=== PATIENT | male | born 1995 | race Two or more races ===

== ENCOUNTER 2023-02-11 09:53 | Inpatient (IN) | payer MEDICAID, OTHER ==
[~2023-02-11] VITALS: Ht 177.8 cm; Wt 77.5 kg
[2023-02-11] MEDS ORDERED: SODIUM CHLORIDE 0.9% 1,000 ML IV ONE (10:15)
[2023-02-11] MEDS ORDERED: LORazepam 2MG/ML-1ML VIAL IV ONE ×4 (10:15→19:30)
[2023-02-11 10:23] LABS: Basophils # (auto) 0.1 10 ^3/uL (0-0.2); Basophils % (auto) 0.6 % (0.0-2.0); Eosinophils # (auto) 0.1 10 ^3/uL (0-0.8); Eosinophils % (auto) 0.7 % (0.0-7.0); Hematocrit 47.2 % (41.0-53.0); Hemoglobin 16.1 g/dL (13.5-17.5); Lymphocytes # (auto) 1.5 10 ^3/uL (0.4-5.4); Mean Corpuscular Hemoglobin 31.2 pg (28.0-32.0); Mean Corpuscular Hgb Conc. 34.2 g/dL (32.0-36.0); Mean Corpuscular Volume 91.4 fL (80.0-100.0); Monocytes # (auto) 0.7 10 ^3/uL (0-1.3); Monocytes % (auto) 7.6 % (0.0-12.0); Neutrophils # (auto) 7.4 10 ^3/uL (1.6-8.6); Neutrophils % (auto) 76.1 % (37.0-80.0); Nucleated Red Blood Cells % 0.1 %; Red Blood Cells 5.16 10^6/uL (4.5-5.90); Red Cell Distribution Width 14.2 % (11.8-14.3); White Blood Cell 9.8 10^3/uL (4.4-10.8)
[2023-02-11 10:26] VITALS: PULSE 98; RESP 19; O2SAT 97
[2023-02-11] MEDS ORDERED: LORazepam 2MG/ML-1ML VIAL ONE ×3 (10:35→19:06)
[2023-02-11 10:43] LABS: Alanine Aminotransferase 88 U/L (7-40); Albumin 5.1 g/dL (3.2-4.8); Alkaline Phosphatase 127 U/L (46-116); Anion Gap 13 (5-15); Aspartate Aminotransferase 36 U/L (13-40); BUN/Creatinine Ratio 8.5 (10.0-20.0); Bilirubin, Total 0.4 mg/dL (0.2-1.0); Blood Urea Nitrogen 7 mg/dL (9-23); Calcium 9.5 mg/dL (8.5-10.1); Carbon Dioxide 19 mmol/L (20-30); Chloride 104 mmol/L (98-107); Glucose 112 mg/dL (74-106); Potassium 3.7 mmol/L (3.5-5.1); Sodium 136 mmol/L (136-145); Total Protein 8.2 g/dL (5.7-8.2)
[2023-02-11 10:52] LABS: Urine WBC None Seen /hpf (0 - 3)
[2023-02-11 11:04] LABS: Urine Bacteria NONE SEEN /hpf (None Seen); Urine Blood Negative /uL (Negative); Urine Clarity Clear (Clear); Urine Color Yellow (Yellow); Urine Mucus FEW (None Seen); Urine Protein, UAD Negative (Negative); Urine Specific Gravity 1.007 (1.001-1.035); Urine Urobilinogen Normal (Negative); Urine pH 5.5 (5.0-8.0)
[2023-02-11] MEDS ORDERED: THIAMINE 100mg/ml INJ (200mg/2ml VIAL) IV ONE (11:15)
[2023-02-11] MEDS ORDERED: KETO10TA PO (13:05)
[2023-02-11] MEDS ORDERED: LEVE500T3 PO (13:05)
[2023-02-11] MEDS ORDERED: NITROGLYCERIN 0.4 MG SL TAB SL PRN (13:15)
[2023-02-11] MEDS ORDERED: ONDANSETRON HCL 4 MG/2 ML VIAL IV PRN (13:15)
[2023-02-11] MEDS ORDERED: ACETAMINOPHEN 325 MG TAB PO PRN (13:15)
[2023-02-11] MEDS ORDERED: MORPHINE SULFATE INJ 2 MG/ml SYRG IV PRN (13:15)
[2023-02-11] MEDS: SODIUM CHLORIDE 0.9% 1,000 ML IV SCH ×2 (13:24→21:35)
[2023-02-11 16:00] VITALS: TEMP 98
[2023-02-11] MEDS: LORazepam 2MG/ML-1ML VIAL IV PRN (19:22)
[2023-02-11 19:35] VITALS: PULSE 84; RESP 18; O2SAT 97
[2023-02-11] MEDS ORDERED: chlordiazePOXIDE HCL 25 MG CAP PO PRN (20:00)
[2023-02-11] MEDS ORDERED: FOLIC ACID 1 MG, MULTIPLE VITAMIN 10 ML, MAGNESIUM SULF SDV 50% 8 MEQ, THIAMINE INJ 100... INJ SCH ×5 (21:45)
[2023-02-11] MEDS: levETIRAcetam 500 MG TAB PO SCH (23:01)
[2023-02-12] MEDS: LORazepam 2MG/ML-1ML VIAL IV PRN ×2 (01:34→08:45)
[2023-02-12 04:29] LABS: Basophils # (auto) 0 10 ^3/uL (0-0.2); Basophils % (auto) 0.5 % (0.0-2.0); Eosinophils # (auto) 0.2 10 ^3/uL (0-0.8); Eosinophils % (auto) 3.1 % (0.0-7.0); Hematocrit 41.2 % (41.0-53.0); Hemoglobin 13.9 g/dL (13.5-17.5); Lymphocytes # (auto) 1.7 10 ^3/uL (0.4-5.4); Mean Corpuscular Hemoglobin 30.9 pg (28.0-32.0); Mean Corpuscular Hgb Conc. 33.6 g/dL (32.0-36.0); Mean Corpuscular Volume 91.8 fL (80.0-100.0); Monocytes # (auto) 0.6 10 ^3/uL (0-1.3); Monocytes % (auto) 8.5 % (0.0-12.0); Neutrophils # (auto) 4.8 10 ^3/uL (1.6-8.6); Neutrophils % (auto) 64.9 % (37.0-80.0); Red Blood Cells 4.49 10^6/uL (4.5-5.90); Red Cell Distribution Width 13.8 % (11.8-14.3); White Blood Cell 7.4 10^3/uL (4.4-10.8)
[2023-02-12 04:43] LABS: Alanine Aminotransferase 61 U/L (7-40); Albumin 3.9 g/dL (3.2-4.8); Alkaline Phosphatase 116 U/L (46-116); Anion Gap 8 (5-15); Aspartate Aminotransferase 23 U/L (13-40); Blood Urea Nitrogen 6 mg/dL (9-23); Calcium 8.5 mg/dL (8.7-10.4); Carbon Dioxide 23 mmol/L (20-30); Chloride 108 mmol/L (98-107); Glucose 86 mg/dL (74-106); Potassium 3.8 mmol/L (3.5-5.1); Sodium 139 mmol/L (136-145)
[2023-02-12 04:44] LABS: Total Protein 6.1 g/dL (5.7-8.2)
[2023-02-12] MEDS: SODIUM CHLORIDE 0.9% 1,000 ML IV SCH ×2 (06:47→14:15)
[2023-02-12 08:23] VITALS: RESP 18; O2SAT 98
[2023-02-12] MEDS ORDERED: HYDROcodone-ACET 5/325MG TAB PO ONE (09:30)
[2023-02-12] MEDS: levETIRAcetam 500 MG TAB PO SCH (10:00)
[2023-02-12] MEDS ORDERED: ENOXAPARIN SOD 40 MG/0.4 ML SYRINGE SC SCH (10:00)
[2023-02-12] MEDS ORDERED: FOLIC ACID 1 MG, MULTIPLE VITAMIN 10 ML, MAGNESIUM SULF SDV 50% 8 MEQ, THIAMINE INJ 100... INJ SCH ×10 (12:00)
[2023-02-12 14:00] VITALS: BP 119/68; PULSE 85; RESP 15; O2SAT 98
[2023-02-12] MEDS ORDERED: LEVE100012 PO (14:10)
== END 2023-02-13 14:27 | disposition home or self-care (01) | DRG 53 ==
LOC: EDBD 09:53 → ER 09:53 → TELE 13:05
PROVIDERS: ADMIT Nurse Practitioner Family; ATTEND Internal Medicine Geriatric Medicine
DX: G40.409 Other generalized epilepsy and epileptic syndromes, not intractable, without status epilepticus (principal); F10.129 Alcohol abuse with intoxication, unspecified; F17.200 Nicotine dependence, unspecified, uncomplicated; Z79.899 Other long term (current) drug therapy; Z91.148 Patient's other noncompliance with medication regimen for other reason
CPT/HCPCS: 36415; 70450; 73030; 80053; 80320; 81001; 82542; 84146; 85025; 95819; 96365; 96375; G0378; J7060

== ENCOUNTER 2023-03-24 13:48 | Emergency (ER) | payer MEDICAID ==
[~2023-03-24] VITALS: Ht 177.8 cm; Wt 82.0 kg
[~2023-03-24 13:48] MED LIST: KETO10TA PO; LEVE100012 PO; LEVE500T3 PO
[2023-03-24] MEDS ORDERED: levETIRAcetam 1000 mg/100ml 100 ML IV ONE (14:00)
[2023-03-24 14:30] VITALS: BP 131/78; PULSE 109; RESP 20; O2SAT 94
[2023-03-24 14:44] LABS: Basophils # (auto) 0 10 ^3/uL (0-0.2); Basophils % (auto) 0.6 % (0.0-2.0); Eosinophils # (auto) 0 10 ^3/uL (0-0.8); Eosinophils % (auto) 0.9 % (0.0-7.0); Hematocrit 44.4 % (41.0-53.0); Lymphocytes % (auto) 20.5 % (10.0-50.0); Mean Corpuscular Hemoglobin 30.6 pg (28.0-32.0); Mean Corpuscular Hgb Conc. 33.8 g/dL (32.0-36.0); Mean Corpuscular Volume 90.7 fL (80.0-100.0); Monocytes # (auto) 0.5 10 ^3/uL (0-1.3); Monocytes % (auto) 9.6 % (0.0-12.0); Neutrophils # (auto) 3.4 10 ^3/uL (1.6-8.6); Neutrophils % (auto) 68.4 % (37.0-80.0); Nucleated Red Blood Cells % 0.1 %; Red Cell Distribution Width 13.5 % (11.8-14.3)
[2023-03-24 14:57] LABS: INR 1.03 (0.9-1.15); Partial Thromboplastin Time 25.8 SEC (24.5-34.5); Prothrombin Time 10.8 sec (9.3-11.8)
[2023-03-24 15:03] LABS: Alanine Aminotransferase 62 U/L (7-40); Albumin 4.8 g/dL (3.2-4.8); Alkaline Phosphatase 111 U/L (46-116); Anion Gap 14 (5-15); Aspartate Aminotransferase 32 U/L (13-40); BUN/Creatinine Ratio 7.8 (10.0-20.0); Blood Alcohol 65.2 mg/dL (<10); Blood Urea Nitrogen 8 mg/dL (9-23); Calcium 9.3 mg/dL (8.7-10.4); Carbon Dioxide 20 mmol/L (20-30); Chloride 106 mmol/L (98-107); Glucose 134 mg/dL (74-106); Magnesium 2.2 mg/dL (1.6-2.6); Potassium 4.3 mmol/L (3.5-5.1); Sodium 140 mmol/L (136-145)
[2023-03-24 15:04] LABS: Bilirubin, Total 0.3 mg/dL (0.2-1.0); Total Protein 7.6 g/dL (5.7-8.2)
[2023-03-24] MEDS ORDERED: LEVE500T40 PO (15:22)
== END 2023-03-24 15:23 | disposition home or self-care (01) ==
LOC: EDBD 13:48 → ER 13:48
DX: S09.93XA Unspecified injury of face, initial encounter (principal); R56.9 Unspecified convulsions; F10.10 Alcohol abuse, uncomplicated; Z79.899 Other long term (current) drug therapy; X58.XXXA Exposure to other specified factors, initial encounter; Y93.89 Activity, other specified; Y92.89 Other specified places as the place of occurrence of the external cause; Y99.8 Other external cause status; Y90.3 Blood alcohol level of 60-79 mg/100 ml
CPT/HCPCS: 36415; 80053; 80320; 83735; 85025; 85610; 85730; 96365; 99284; J1953

== ENCOUNTER 2023-04-18 02:37 | Emergency (ER) | payer MEDICAID ==
[~2023-04-18] VITALS: Ht 182.9 cm; Wt 90.7 kg
[~2023-04-18 02:37] MED LIST changes: +LEVE500T40 PO
[2023-04-18] MEDS ORDERED: LORazepam 2MG/ML-1ML VIAL IV ONE (03:45)
[2023-04-18] MEDS ORDERED: levETIRAcetam 1000 mg/100ml 100 ML IV ONE (04:00)
[2023-04-18 04:30] VITALS: PULSE 105; RESP 18; O2SAT 95
[2023-04-18] MEDS ORDERED: MIDAZOLAM HCL 2MG/2ML 2ml VIAL (1mg/ml) IV ONE (04:45)
[2023-04-18] MEDS ORDERED: PROPOFOL 100 ML IV ONE (05:12)
[2023-04-18] MEDS ORDERED: KEP500T PO (05:19)
[2023-04-18 06:16] LABS: Basophils # (auto) 0.1 10 ^3/uL (0-0.2); Basophils % (auto) 0.7 % (0.0-2.0); Eosinophils # (auto) 0.1 10 ^3/uL (0-0.8); Hematocrit 41.5 % (41.0-53.0); Hemoglobin 13.9 g/dL (13.5-17.5); Lymphocytes # (auto) 1.7 10 ^3/uL (0.4-5.4); Lymphocytes % (auto) 19.3 % (10.0-50.0); Mean Corpuscular Hgb Conc. 33.4 g/dL (32.0-36.0); Mean Corpuscular Volume 89.8 fL (80.0-100.0); Monocytes # (auto) 0.7 10 ^3/uL (0-1.3); Monocytes % (auto) 8.2 % (0.0-12.0); Neutrophils # (auto) 6.4 10 ^3/uL (1.6-8.6); Neutrophils % (auto) 70.8 % (37.0-80.0); Red Blood Cells 4.62 10^6/uL (4.5-5.90); Red Cell Distribution Width 13.3 % (11.8-14.3)
[2023-04-18] MEDS ORDERED: PROPOFOL 10 MG/ML 20 ML IV ONE (06:30)
[2023-04-18 06:43] LABS: Alanine Aminotransferase 50 U/L (7-40); Albumin 3.9 g/dL (3.2-4.8); Alkaline Phosphatase 86 U/L (46-116); Anion Gap 7 (5-15); Aspartate Aminotransferase 23 U/L (13-40); BUN/Creatinine Ratio 10.4 (10.0-20.0); Bilirubin, Total 0.5 mg/dL (0.2-1.0); Blood Urea Nitrogen 8 mg/dL (9-23); Calcium 8.3 mg/dL (8.7-10.4); Carbon Dioxide 22 mmol/L (20-30); Chloride 108 mmol/L (98-107); Glucose 90 mg/dL (74-106); Potassium 3.3 mmol/L (3.5-5.1); Sodium 137 mmol/L (136-145); Total Protein 6.1 g/dL (5.7-8.2)
[2023-04-18 09:29] VITALS: PULSE 56; RESP 16; O2SAT 98
[2023-04-18 10:48] VITALS: BP 96/55; PULSE 71; RESP 20; O2SAT 98
== END 2023-04-18 12:52 | disposition home or self-care (01) ==
LOC: EDBD 02:37 → ER 02:37
DX: M24.412 Recurrent dislocation, left shoulder (principal); G40.909 Epilepsy, unspecified, not intractable, without status epilepticus
CPT/HCPCS: 23650; 36415; 73020; 73030; 80053; 85025; 93005; 96365; 96375; 99285; J1953; J2060; J2250; J2704

== ENCOUNTER 2023-06-13 10:45 | Inpatient (IN) | payer MEDICAID ==
[~2023-06-13] VITALS: Ht 179.1 cm; Wt 84.6 kg
[~2023-06-13 10:45] MED LIST changes: +KEP500T PO; -LEVE100012 PO; -LEVE500T3 PO; -LEVE500T40 PO
[2023-06-13] MEDS: levETIRAcetam 1000 mg/100ml 100 ML IV ONE (10:59)
[2023-06-13] MEDS: SODIUM CHLORIDE 0.9% 1,000 ML IV ONE ×2 (11:01→12:51)
[2023-06-13 11:05] VITALS: PULSE 112; RESP 19; O2SAT 92
[2023-06-13 11:34] LABS: Basophils # (auto) 0.1 10 ^3/uL (0-0.2); Basophils % (auto) 0.8 % (0.0-2.0); Eosinophils # (auto) 0.1 10 ^3/uL (0-0.8); Eosinophils % (auto) 1.1 % (0.0-7.0); Hemoglobin 14.3 g/dL (13.5-17.5); Lymphocytes # (auto) 1.4 10 ^3/uL (0.4-5.4); Lymphocytes % (auto) 16.7 % (10.0-50.0); Mean Corpuscular Hemoglobin 30.1 pg (28.0-32.0); Mean Corpuscular Hgb Conc. 33.3 g/dL (32.0-36.0); Mean Corpuscular Volume 90.5 fL (80.0-100.0); Monocytes # (auto) 0.7 10 ^3/uL (0-1.3); Monocytes % (auto) 7.9 % (0.0-12.0); Neutrophils # (auto) 6.2 10 ^3/uL (1.6-8.6); Neutrophils % (auto) 73.5 % (37.0-80.0); Nucleated Red Blood Cells % 0.1 %; Red Blood Cells 4.75 10^6/uL (4.5-5.90); Red Cell Distribution Width 13.7 % (11.8-14.3); White Blood Cell 8.4 10^3/uL (4.4-10.8)
[2023-06-13 11:56] LABS: Alanine Aminotransferase 51 U/L (7-40); Albumin 4.5 g/dL (3.2-4.8); Alkaline Phosphatase 80 U/L (46-116); Anion Gap 11 (5-15); Aspartate Aminotransferase 22 U/L (13-40); BUN/Creatinine Ratio 13.6 (10.0-20.0); Blood Urea Nitrogen 12 mg/dL (9-23); Calcium 8.8 mg/dL (8.7-10.4); Carbon Dioxide 19 mmol/L (20-30); Chloride 107 mmol/L (98-107); Creatine Kinase IFCC 142 U/L (46-171); Glucose 88 mg/dL (74-106); Magnesium 2.1 mg/dL (1.6-2.6); Potassium 4.8 mmol/L (3.5-5.1); Sodium 137 mmol/L (136-145)
[2023-06-13 11:57] LABS: Bilirubin, Total 0.3 mg/dL (0.2-1.0); Total Protein 6.9 g/dL (5.7-8.2)
[2023-06-13 11:59] LABS: Lactic Acid w/Reflex 5.7 mmol/L (0.4-2.0)
[2023-06-13 13:40] LABS: Urine Bacteria NONE SEEN /hpf (None Seen); Urine Blood Negative /uL (Negative); Urine Clarity Clear (Clear); Urine Color Straw (Yellow); Urine Mucus FEW (None Seen); Urine Protein, UAD Negative (Negative); Urine Specific Gravity 1.012 (1.001-1.035); Urine Urobilinogen Normal (Negative); Urine WBC <1 /hpf (0 - 3)
[2023-06-13] MEDS ORDERED: MORPHINE SULFATE INJ 2 MG/ml SYRG IV PRN (14:00)
[2023-06-13] MEDS ORDERED: ACETAMINOPHEN 325 MG TAB PO PRN (14:00)
[2023-06-13] MEDS ORDERED: NITROGLYCERIN 0.4 MG SL TAB SL PRN (14:00)
[2023-06-13] MEDS: LORazepam 2MG/ML-1ML VIAL ONE (14:01)
[2023-06-13 14:09] LABS: Amphetamine Screen, Urine Neg (NEGATIVE); Benzodiazephine Screen, Urine Neg (NEGATIVE)
[2023-06-13 14:10] LABS: Barbiturate Scree,Urine Neg (NEGATIVE); Cocaine Screen, Urine Neg (NEGATIVE)
[2023-06-13 14:11] LABS: Cannabinoid Screen, Urine Neg (NEGATIVE); Opiate Scree,Urine Neg (NEGATIVE); Phencyclidine Screen, Urine Neg (NEGATIVE)
[2023-06-13] MEDS: LORazepam 2MG/ML-1ML VIAL IV ONE (14:15)
[2023-06-13] MEDS: SODIUM CHLORIDE 0.9% 1,000 ML IV SCH (15:19)
[2023-06-13 19:40] VITALS: PULSE 112; RESP 18; O2SAT 94
[2023-06-13] MEDS: levETIRAcetam 500 MG TAB PO SCH (22:13)
[2023-06-13] MEDS: levETIRAcetam 500 MG TAB ONE (22:15)
[2023-06-13] MEDS: levETIRAcetam 500 MG/5ML INJ IV ONE (22:16)
[2023-06-14 05:00] VITALS: BP 109/65; PULSE 66; RESP 16; TEMP 98.2; O2SAT 94
[2023-06-14] MEDS: LORazepam 2MG/ML-1ML VIAL IV PRN (07:55)
[2023-06-14 08:00] VITALS: PULSE 85
[2023-06-14 09:00] VITALS: BP 119/74; PULSE 63; RESP 20; TEMP 98.2; O2SAT 96
[2023-06-14] MEDS ORDERED: LORazepam 2MG/ML-1ML VIAL IV ONE (09:00)
[2023-06-14] MEDS: THIAMINE 100mg/ml INJ (200mg/2ml VIAL) IV SCH (09:21)
[2023-06-14] MEDS: levETIRAcetam 1000 mg/100ml 100 ML IV SCH (09:21)
[2023-06-14] MEDS: ENOXAPARIN SOD 40 MG/0.4 ML SYRINGE SC SCH (10:00)
[2023-06-14 13:00] VITALS: BP 139/61; PULSE 77; RESP 18; TEMP 98.6; O2SAT 95
== END 2023-06-14 15:00 | disposition left against medical advice (07) | DRG 53 ==
LOC: EDUNIT# 10:45 → ER 10:45 → EDBD 10:45 → TELE 13:59 → ER 14:05 → TELE-WESTW 22:50
PROVIDERS: ADMIT Nurse Practitioner Family; ATTEND Internal Medicine Geriatric Medicine
DX: G40.409 Other generalized epilepsy and epileptic syndromes, not intractable, without status epilepticus (principal); E87.20 Acidosis, unspecified; R41.3 Other amnesia; F17.200 Nicotine dependence, unspecified, uncomplicated; M25.512 Pain in left shoulder; Z91.199 Patient's noncompliance with other medical treatment and regimen due to unspecified reason; Z79.899 Other long term (current) drug therapy
CPT/HCPCS: 36415; 70450; 71045; 73030; 80053; 80307; 81001; 82542; 82550; 83605; 83735; 84443; 84484; 85025; 93005; G0378

== ENCOUNTER 2023-07-09 15:01 | Inpatient (IN) | payer MEDICAID ==
[~2023-07-09] VITALS: Ht 180.3 cm; Wt 75.5 kg
[~2023-07-09 15:01] MED LIST changes: -KETO10TA PO
[2023-07-09] MEDS: levETIRAcetam 500 mg/100ml 100 ML IV SCH (17:50)
[2023-07-09 22:08] VITALS: PULSE 79; RESP 15; O2SAT 96
[2023-07-09] MEDS: PROPOFOL 10 MG/ML 20 ML IV ONE (22:34)
[2023-07-10 01:26] LABS: Urine Bacteria FEW /hpf (None Seen); Urine Blood Negative /uL (Negative); Urine Clarity HAZY (Clear); Urine Color Yellow (Yellow); Urine Mucus FEW (None Seen); Urine Protein, UAD TRACE (Negative); Urine Specific Gravity 1.022 (1.001-1.035); Urine Sperm PRESENT /hpf (None Seen); Urine Urobilinogen Normal (Negative); Urine WBC 1 /hpf (0 - 3); Urine pH 5.5 (5.0-8.0)
[2023-07-10 01:53] LABS: Basophils # (auto) 0 10 ^3/uL (0-0.2); Basophils % (auto) 0.6 % (0.0-2.0); Eosinophils # (auto) 0.1 10 ^3/uL (0-0.8); Eosinophils % (auto) 1.9 % (0.0-7.0); Hematocrit 44.1 % (41.0-53.0); Hemoglobin 14.7 g/dL (13.5-17.5); Lymphocytes % (auto) 25.7 % (10.0-50.0); Mean Corpuscular Hemoglobin 29.6 pg (28.0-32.0); Mean Corpuscular Hgb Conc. 33.3 g/dL (32.0-36.0); Monocytes # (auto) 0.8 10 ^3/uL (0-1.3); Monocytes % (auto) 10.3 % (0.0-12.0); Neutrophils # (auto) 4.8 10 ^3/uL (1.6-8.6); Neutrophils % (auto) 61.5 % (37.0-80.0); Nucleated Red Blood Cells % 0.2 %; Red Blood Cells 4.95 10^6/uL (4.5-5.90); Red Cell Distribution Width 14.1 % (11.8-14.3); White Blood Cell 7.8 10^3/uL (4.4-10.8)
[2023-07-10 01:59] LABS: Chloride 105 mmol/L (98-107); Potassium 3.6 mmol/L (3.5-5.1); Sodium 138 mmol/L (136-145)
[2023-07-10 02:00] VITALS: PULSE 82; RESP 20; O2SAT 98
[2023-07-10 02:01] LABS: Anion Gap 9 (5-15); Calcium 9.3 mg/dL (8.7-10.4); Carbon Dioxide 24 mmol/L (20-30)
[2023-07-10 02:06] LABS: BUN/Creatinine Ratio 12.9 (10.0-20.0); Blood Urea Nitrogen 11 mg/dL (9-23); Glucose 89 mg/dL (74-106)
[2023-07-10] MEDS: MORPHINE SULFATE INJ 2 MG/ml SYRG IV PRN (02:06)
[2023-07-10] MEDS: ONDANSETRON HCL 4 MG/2 ML VIAL IV PRN (02:06)
[2023-07-10 02:15] LABS: INR 1.04 (0.9-1.15); Partial Thromboplastin Time 26.8 SEC (24.5-34.5); Prothrombin Time 10.9 sec (9.3-11.8)
[2023-07-10 07:30] VITALS: PULSE 71; RESP 16; O2SAT 94
[2023-07-10] MEDS: levETIRAcetam 500 mg/100ml 100 ML IV SCH (10:12)
[2023-07-10] MEDS: HYDROcodone-ACET 5/325MG TAB PO PRN (18:37)
[2023-07-10 19:57] VITALS: PULSE 78; RESP 20; O2SAT 99
[2023-07-10] MEDS: levETIRAcetam 500 MG TAB PO SCH (20:20)
[2023-07-10] MEDS ORDERED: levETIRAcetam 500 MG TAB PO SCH (22:00)
[2023-07-11] MEDS: KETOROLAC TROMETH 30 MG/ML 1ML VIAL IV ONE (00:19)
[2023-07-11 01:34] VITALS: BP 112/64; PULSE 74; RESP 18; TEMP 98.1; O2SAT 95
[2023-07-11 05:00] VITALS: BP 101/63; PULSE 66; RESP 19; TEMP 98; O2SAT 94
[2023-07-11 07:49] VITALS: BP 115/71; PULSE 80; RESP 16; TEMP 97.8; O2SAT 94
[2023-07-11] MEDS ORDERED: KEP500T PO (10:11)
[2023-07-11 11:45] VITALS: BP 105/62; PULSE 82; RESP 17; TEMP 97.6; O2SAT 94
[2023-07-11 12:04] VITALS: TEMP 36.4
== END 2023-07-11 15:11 | disposition home or self-care (01) | DRG 342 ==
LOC: ER 15:01 → OVERFLOW 07-10 00:41 → CENTRAL 07-10 22:00
PROVIDERS: ADMIT Nurse Practitioner; ATTEND Internal Medicine
PROC: 0RSKXZZ Reposition Left Shoulder Joint, External Approach (ICD-10-PCS; principal; 2023-07-10)
DX: S43.005A Unspecified dislocation of left shoulder joint, initial encounter (principal); G40.409 Other generalized epilepsy and epileptic syndromes, not intractable, without status epilepticus; F17.200 Nicotine dependence, unspecified, uncomplicated; M24.412 Recurrent dislocation, left shoulder; Z79.899 Other long term (current) drug therapy; Z91.199 Patient's noncompliance with other medical treatment and regimen due to unspecified reason; W18.39XA Other fall on same level, initial encounter; Y93.89 Activity, other specified; Y92.89 Other specified places as the place of occurrence of the external cause; Y99.8 Other external cause status
CPT/HCPCS: 36415; 73030; 73200; 80048; 81001; 85610; 85730; G0378; J1885; J2405; J2704